=== PATIENT | male | born 1995 | race Caucasian/White ===

== ENCOUNTER 2022-12-24 12:29 | Emergency (ER) | payer MEDICAID ==
[~2022-12-24] VITALS: Ht 177.8 cm; Wt 111.0 kg
[2022-12-24] MEDS ORDERED: KETOROLAC 30MG/ML VIAL IM ONE (16:30)
[2022-12-24 16:45] VITALS: BP 133/88
== END 2022-12-24 16:48 | disposition home or self-care (01) ==
LOC: ER 12:29
DX: J06.9 Acute upper respiratory infection, unspecified (principal); Z20.822 Contact with and (suspected) exposure to COVID-19; Z98.890 Other specified postprocedural states
CPT/HCPCS: 87426; 87804; 96372; 99283; C9803; J1885